=== PATIENT | male | born 1995 | race Caucasian/White ===

== ENCOUNTER 2021-05-22 21:00 | Emergency (ER) | payer OTHER, SELFPAY ==
[2021-05-22 21:02] VITALS: BP 102/86; PULSE 79; RESP 16; TEMP 36.8; O2SAT 98
--- NOTE | 2021-05-22 21:16 | EX.ED.DYSGE1 ---
HPI History of Present Illness Chief Complaint: Dental Informant: patient Narrative Narrative: Patient has about 3 or 4 days of right upper jaw dental pain. Real hot and cold substances bother it. Just room temperature water calms it down. No fevers chills sweats. No acute trauma. He did chip this tooth back in December but it did not start hurting until few days ago. He already has an appointment with a dentist this . PFSH PFSH Home Medications naproxen 500 mg PO BID #14 tab 05/22/21 [Rx Last Taken Unknown] penicillin V potassium 500 mg PO 4X/DAY #40 tab 05/22/21 [Rx Last Taken Unknown] Allergy/AdvReac Type Severity Reaction Status Date / Time ethinyl estradiol Allergy Other Verified 05/22/21 21:05 [From [facility] ()] levonorgestrel Allergy Other Verified 05/22/21 21:05 [From [facility]ale ()] Social History Smoking Status: Never smoker ROS ROS ED Constitutional Constitutional ED: Denies chills or fever(s) ENT ENT ED: Reports other Details: See history of present illness Cardiovascular Cardiovascular: Denies chest pain or palpitations Gastrointestinal Gastrointestinal: Denies nausea or vomiting Musculoskeletal Musculoskeletal: Denies arthralgias or myalgias Integumentary Denies abscess, Abrasions or rash EXAM Physical Exam Const Vital Signs: 05/22/21 21:02 05/22/21 21:22 Temperature 98.3 F Temperature Source Temporal Pulse Rate 79 Respiratory Rate 16 14 Blood Pressure 102/86 H Blood Pressure Mean 91 Pulse Ox 98 Oxygen Delivery Method Room Air Positive well nourished and well developed General Appearance ED: well developed and NAD HEENT Reports moist mucous membranes HEENT Narrative: Patient has multiple dental caries his prior fillings. He has tenderness of molar and right upper jaw. There is minimal erythema of the gums but no swelling at all. No abscess. No loose teeth. Voice is normal. Handling secretions are normal. 0 indication of Ludewig's angina. Eyes PERRL Neck no lymphadenopathy Neck Narrative: No swelling or lymphadenopathy Chest Wall inspection of chest normal Resp normal respiratory effort Cardio regular rate and regular rhythm Skin no rashes or lesions noted Discharge Plan Triage Chief Complaint: Dental ED Provider: Joseph Rutherford Dx/Rx/DC Orders Clinical Impression: Dental implant pain Instructions: Dental Abscess Prescriptions: New penicillin V potassium 500 MG tablet 500 mg PO 4X/DAY Qty: 40 RF: 0 naproxen 500 MG tablet 500 mg PO BID Qty: 14 RF: 0 Primary Care Provider: Jm Banks Referrals: Jm Banks MD [Primary Care Provider] - Activity Restrictions/Additional Instructions: Follow-up with your dentist as scheduled this . Disposition Disposition: Home, Self Care
[2021-05-22 21:22] VITALS: RESP 14
[2021-05-22] MEDS: Penicillin Vk 250 MG Tablet 500 MG PO (21:27)
[2021-05-22] MEDS: Naproxen 375 MG Tablet PO (21:27)
== END 2021-05-22 21:43 | disposition home or self-care (01) ==
LOC: ED 21:41
PROVIDERS: Emergency Provider Emergency Medicine; Visit Provider Emergency Medicine
DX: K02.9 Dental caries, unspecified (principal); K08.89 Other specified disorders of teeth and supporting structures; Z98.811 Dental restoration status
CPT/HCPCS: 99283